=== PATIENT | female | born 1970 | race African-American/Black ===

== ENCOUNTER 2019-09-02 03:46 | Emergency (ER) | payer BC ==
[~2019-09-02] VITALS: Ht 167.6 cm; Wt 93.0 kg
[2019-09-02] MEDS ORDERED: ONDANSETRON HCL 4MG/2ML INJ IV STA (05:13)
[2019-09-02] MEDS ORDERED: SODIUM CHLORIDE 0.9% 1,000 ML IV ONE (05:13)
[2019-09-02] MEDS ORDERED: MORPHINE SULFATE 4 MG/ML CPJ (NOT FOR IM USE) IV STA (05:13)
[2019-09-02 05:41] LABS: HEMATOCRIT. 42.2 % (36.0-48.0); HEMOGLOBIN. 14.6 g/dL (12.0-16.0); MEAN CORPUSCULAR HEMOGLOBIN 35.2 pg (28.0-32.0); MEAN CORPUSCULAR VOLUME 101.6 fL (81.0-99.0); MEAN PLATELET VOLUME 9.5 fl (7.4-10.4); PLATELET 168 x1000/uL (130-400); RED BLOOD CELL COUNT 4.15 mill/uL (4.2-5.4); RED CELL DISTRIBUTION WIDTH 13.5 % (11.6-14.6)
[2019-09-02 05:43] LABS: CHLORIDE 103 mEq/L (98-107)
[2019-09-02 06:16] LABS: ATYPICAL LYMPHOCYTES 3; PLATELET ESTIMATE NORMAL
[2019-09-02] MEDS ORDERED: IOHEXOL-300 100 ML BOTTLE ONE (07:11)
[2019-09-02 07:13] LABS: CLARITY URINE TURBID (CLEAR); COLOR URINE YELLOW (YELLOW); KETONES URINE NEGATIVE (NEGATIVE); LEUKOCYTE ESTERASE URINE 2+ (NEGATIVE); NITRITE URINE NEGATIVE (NEGATIVE); OCCULT BLOOD URINE TRACE (NEGATIVE); PROTEIN URINE 1+ (NEGATIVE); SPECIFIC GRAVITY URINE 1.025 (1.005-1.030)
[2019-09-02] MEDS ORDERED: KETOROLAC 15MG/ML VIAL IV ONE (08:00)
[2019-09-02] MEDS ORDERED: CEFTRIAXONE 2 G PREMIX 50 ML IV ONE (08:00)
[2019-09-02] MEDS ORDERED: POTASSIUM CHLORIDE INJ 40 MEQ in DEXT 5% WATER 250 ML IV NR (08:00)
[2019-09-02] MEDS ORDERED: POTASSIUM CHLORIDE 20MEQ/PACKET PO ONE (09:00)
[2019-09-02 09:36] VITALS: BP 130/87
== END 2019-09-02 09:38 | disposition home or self-care (01) ==
LOC: ER 03:46
DX: R10.13 Epigastric pain (principal); R51 Headache; R19.7 Diarrhea, unspecified; R11.0 Nausea; K21.9 Gastro-esophageal reflux disease without esophagitis; I10 Essential (primary) hypertension; Z98.890 Other specified postprocedural states; Z87.891 Personal history of nicotine dependence
CPT/HCPCS: 36415; 71045; 74177; 80053; 81003; 83605; 83690; 84484; 85025; 87086; 93005; 96361; 96365; 96368; 96375; 99284; J0696; J1885; J2270; J2405; J3480; J7030; J7060; Q9967